=== PATIENT | female | born 1995 | race Caucasian/White ===

== ENCOUNTER 2025-08-06 12:25 | Emergency (ER) | payer MEDICAID, SELFPAY ==
[2025-08-06 12:38] VITALS: BP 132/83; PULSE 71; RESP 17; TEMP 36.9; O2SAT 98
--- NOTE | 2025-08-06 12:42 | PD.EDRME ---
Rapid Medical Screening Exam RME Arrival date/time: 08/06/25 12:25 29-year-old female presents to the emergency department evidence of nausea vomiting Chief Complaint: Nausea/Vomiting/Diarrhea Vital signs: Vital Signs Temperature 98.4 F 08/06/25 12:38 Pulse Rate 71 08/06/25 12:38 Respiratory Rate 17 08/06/25 12:38 Blood Pressure 132/83 H 08/06/25 12:38 Pulse Oximetry (%) 98 08/06/25 12:38 Oxygen Delivery Method Room Air 08/06/25 12:38
[2025-08-06] MEDS: METOCLOPRAMIDE INJ 5 MG/ML VIAL 2 ML 10 MG IM (12:51)
--- NOTE | 2025-08-06 14:01 | PC.NURSE ---
PT REQUEST AMA FORM, THIS RN WENT TO TELL PROVIDER AND GET FORM, UPON RETURNING TO CONFERENCE ROOM PT WAS NOT IN THERE, PT ELOPED.
== END 2025-08-06 14:03 | disposition left against medical advice (07) ==
PROVIDERS: Emergency Provider Family Medicine
DX: R11.2 Nausea with vomiting, unspecified (principal); R19.7 Diarrhea, unspecified; Z53.21 Procedure and treatment not carried out due to patient leaving prior to being seen by health care provider
CPT/HCPCS: 80053; 80307; 81001; 83690; 84703; 85025; 96372; 99282; J2765